=== PATIENT | male | born 1995 | race Caucasian/White ===

== ENCOUNTER 2016-09-29 03:43 | Emergency (ER) | payer OTHER ==
[2016-09-29] MEDS ORDERED: Ondansetron INJ* 2 MG/ML VIAL IV ONE (04:01)
[2016-09-29] MEDS ORDERED: NS 0.9% 1000 ML* 1,000 ML IV ONE (04:01)
--- NOTE | 2016-09-29 04:18 | ED ---
Muriel Gotti Matthew, scribed for Jesu Sanchez MD on 09/29/16 at 0417 . GI/ HPI - HPI Summary HPI Summary: A 21 y/o male presents to the ED with sudden, constant n/v/d since 3 hours ago. Associated symptoms include abdominal discomfort. The pain is rated 3/10 in severity. The patient states that he ate sushi for dinner tonight. His friend whom also ate the sushi is ill. He initially felt fine after eating the meal. He 's also c/o of a sore throat. - History of Current Complaint Chief Complaint: EDNauseaVomitDiarrh Time Seen by Provider: 09/29/16 03:59 Stated Complaint: GENERAL ILLNESS Hx Obtained From: Patient Onset/Duration: Started Hours Ago, Atraumatic, Still Present Timing: Constant Severity: Mild Current Severity: Mild Pain Intensity: 3 Location of Pain: Diffuse Associated Signs and Symptoms: Positive: Nausea, Vomiting, Diarrhea, Abdominal Pain - Allergy/Home Medications Allergies/Adverse Reactions: Allergies Allergy/AdvReac Type Severity Reaction Status Date / Time No Known Allergies Allergy Verified 09/29/16 04:05 PMH/Surg Hx/FS Hx/Imm Hx Previously Healthy: Yes Endocrine/Hematology History: Denies: Hx Diabetes - Surgical History Surgery Procedure, Year, and Place: right ankle surgery Infectious Disease History: No Infectious Disease History: Denies: Traveled Outside the [place] in Last 30 Days - Family History Known Family History: Positive: Cardiac Disease, Hypertension Negative: Diabetes - Social History Occupation: Student Alcohol Use: Occasionally Substance Use Type: Reports: None Smoking Status (MU): Never Smoked Tobacco Review of Systems Constitutional: Negative Eyes: Negative ENT: Negative Cardiovascular: Negative Respiratory: Negative Positive: Abdominal Pain, Vomiting, Diarrhea, Nausea Genitourinary: Negative Musculoskeletal: Negative Skin: Negative Neurological: Negative Psychological: Normal All Other Systems Reviewed And Are Negative: Yes Physical Exam Triage Information Reviewed: Yes Vital Signs On Initial Exam: Initial Vitals Temp Pulse Resp BP Pulse Ox 98.5 F 118 12 119/69 99 09/29/16 03:44 09/29/16 03:44 09/29/16 03:44 09/29/16 03:44 09/29/16 03:44 Vital Signs Reviewed: Yes Appearance: Positive: Pain Distress - MILDLY UNCOMFORTABLE, Thin Skin: Positive: Warm Eyes: Positive: ISAMAR ENT: Positive: Hearing grossly normal Neck: Positive: Supple Respiratory/Lung Sounds: Positive: Breath Sounds Present Cardiovascular: Positive: RRR Abdomen Description: Positive: Nontender, Soft Bowel Sounds: Positive: Present Musculoskeletal: Positive: Strength/ROM Intact Neurological: Positive: Sensory/Motor Intact Diagnostics - Vital Signs Vital Signs Temp Pulse Resp BP Pulse Ox 09/29/16 03:44 98.5 F 118 12 119/69 99 - Laboratory Result Diagrams: 09/29/16 04:10 09/29/16 04:10 Lab Statement: Any lab studies that have been ordered have been reviewed, and results considered in the medical decision making process. Re-Evaluation - Re-Evaluation First Eval Re-Evaluation Time: 05:35 Change: Improved Comment: The patient states that he's feeling better. GIGU Course/Dx - Course Assessment/Plan: A 21 y/o male presents to the ED with sudden, constant n/v/d since 3 hours ago. Labs were reviewed. The patient states that he is feeling better and hell be discharged home to follow-up with [facility]. - Diagnoses Provider Diagnoses: Gastroenteritis Discharge - Discharge Plan Condition: Stable Disposition: HOME Patient Education Materials: Gastroenteritis (ED) Referrals: [facility] FENG Mir [Medical Doctor] - 2 Days Additional Instructions: Please follow-up with your primary care physician in two days. The documentation as recorded by the Muriel nolasco Matthew accurately reflects the service I personally performed and the decisions made by me, Jesu Sanchez MD.
[2016-09-29 04:33] LABS: Albumin 4.9 g/dL (3.2-5.2); BUN/Creatinine Ratio 12.9 (8-20); Calcium 9.8 mg/dL (8.6-10.3); EGFR African American 131.9 (>60); EGFR Non-African American 102.6 (>60); Globulin 2.9 g/dL (2-4); Potassium 4.6 mmol/L (3.5-5.0); Total Bilirubin 0.6 mg/dL (0.2-1.0); Total Protein 7.8 g/dL (6.4-8.9)
[2016-09-29 04:36] LABS: Hematocrit 47 % (42-52); Hemoglobin 15.7 g/dl (14.0-18.0); Mean Corpuscular HGB Conc 34 g/dl (31-36); Mean Corpuscular Hemoglobin 30 pg (27-31); Mean Corpuscular Volume 88 fL (80-94); Mean Platelet Volume 8 um3 (7.4-10.4); Red Blood Count 5.34 10^6/ul (4.0-5.4); Red Cell Distribution Width 14 % (10.5-15); White Blood Count 16.6 10^3/ul (3.5-10.8)
[2016-09-29 05:41] VITALS: BP 112/69
== END 2016-09-29 05:35 | disposition home or self-care (01) ==
LOC: ED 03:43
DX: K52.9 Noninfective gastroenteritis and colitis, unspecified (principal); R11.2 Nausea with vomiting, unspecified
CPT/HCPCS: 36415; 80053; 83690; 85025; 96361; 96374; 99282; J2405